=== PATIENT | female | born 1980 | race Two or more races ===

== ENCOUNTER 2020-10-21 15:03 | Outpatient (REF) | payer OTHER, SELFPAY ==
[2020-10-21 15:28] LABS: COVID-19 Test Negative (Negative); IDNOW Serial# 55D5AD1C
== END 2020-10-21 15:04 | disposition home or self-care (01) ==
LOC: HO.EMPCOV 15:03
PROVIDERS: Visit Provider Internal Medicine
DX: Z20.828 Contact with and (suspected) exposure to other viral communicable diseases (principal)
CPT/HCPCS: 87635; C9803